=== PATIENT | male | born 1980 | race Caucasian/White ===

== ENCOUNTER 2019-03-07 15:15 | Emergency (ER) | payer MEDICAID, SELFPAY ==
[2019-03-07 15:30] VITALS: BP 128/86; PULSE 89; RESP 18; TEMP 36.8; O2SAT 99; BMI 23.3
--- NOTE | 2019-03-07 15:35 | HMH.EDUTC ---
[facility] [place] Impression: Orchitis UTI (urinary tract infection) Qualifiers: Urinary tract infection type: site unspecified Hematuria presence: with hematuria Qualified Code(s): N39.0 - Urinary tract infection, site not specified Disposition: Home, Self-Care Condition on Discharge: Good Instructions: Orchitis, DI for Orchitis Additional Instructions: Drink plenty of fluids. Take tylenol or ibuprofen for pain or fever Take all the antibiotics as prescribed. Follow up with your regular doctor. GO TO THE ER FOR ANY WORSENING OR LIFE THREATENING SYMPTOMS Prescriptions: Ibuprofen [Ibuprofen 600mg Tablet] 600 mg PO Q6HP PRN #30 tab PRN Reason: Mild Pain cefUROXime axetil [Ceftin 250mg Tablet] 250 mg PO BID #20 tab Doxycycline Hyclate [Doxycycline 100mg Capsule] 100 mg PO BID 10 Days #20 cap Referrals: Provider,Referral, MD [Primary Care Provider] - Time of Disposition: 17:39 Medical Decision Making - Medical Records Medical records reviewed: Yes: I reviewed the patient's medical records. - Joshua Inquiry Pt receiving controlled substance: No Joshua was queried for this patient: No Vital Signs: 03/07/19 15:30 03/07/19 18:10 Temperature 98.2 F 98.2 F Temperature Source Oral Pulse Rate 89 Pulse Rate [Right Radial] 89 Respiratory Rate 18 18 Blood Pressure 128/86 Blood Pressure [Right Arm] 128/86 Blood Pressure Mean [Right Arm] 100 Blood Pressure Source [Right Arm] Automatic Cuff Blood Pressure Position [Right Arm] Sitting 02 Sat by Pulse Oximetry 99 Oxygen Delivery Method Room Air - Lab Data Lab Results 03/07/19 15:35: Urine Color Dark yellow, Urine Appearance Cloudy, Urine pH 7.0, Ur Specific [place] 1.025, Urine Protein 1+, Urine Glucose (UA) Negative, Urine Ketones Trace, Urine Blood 2+, Urine Nitrate Negative, Urine Bilirubin 1+ A, Urine Urobilinogen 1, Ur Leukocyte Esterase 1+ A Orders (Tests/Meds): ED MEDICATIONS Discontinued Medications Generic Name Dose Route Start Last Admin Trade Name Freq PRN Reason Stop Dose Admin Ceftriaxone Sodium 1 gm 03/07/19 17:32 03/07/19 17:45 Rocephin 1gm Vial IM 03/07/19 17:33 1 gm ONCE ONE Administration Protocol Ketorolac Tromethamine 60 mg 03/07/19 17:32 03/07/19 17:45 Toradol 60mg/2ml Vial IM 03/07/19 17:33 60 mg ONCE ONE Administration Lidocaine HCl 0 ml 03/07/19 17:32 03/07/19 17:45 Lidocaine 1% 10ml Mdv IM 03/07/19 17:33 2.1 ml ONCE ONE Administration ORDERS Category Date Time Status Urine Culture Stat Micro 03/07/19 15:42 Received - US Data US Images: Other ED US Reviewed: Yes: I have viewed radiologist's interpretation Preliminary Findings: Normal/NAD Findings Narrative: good blood flow, no torsion [facility] [place] - General Stated complaint: privates hurting Time Seen by Provider: 03/07/19 15:35 Mode of Arrival: Wheelchair Source of Information: Patient Limitations: No Limitations Description of Symptoms (Recalled from Triage Doc. 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 - Related Data Previous Rx's Medication Instructions Recorded Doxycycline Hyclate [Doxycycline 100 mg PO BID 10 Days #20 cap 03/07/19 100mg Capsule] Ibuprofen [Ibuprofen 600mg 600 mg PO Q6HP PRN #30 tab 03/07/19 Tablet] cefUROXime axetil [Ceftin 250mg 250 mg PO BID #20 tab 03/07/19 Tablet] Allergies Allergy/AdvReac Type Severity Reaction Status Date / Time No Known Allergies Allergy Unverified 09/26/17 14:38 - Worker's Comp Is this a Wor
[2019-03-07 15:46] LABS: Apearance,Urine Cloudy (Clear); Bilirubin,Urine 1+ (Negative); Blood, Urine 2+ (Negative); Color,Urine Dark Yellow (Yellow); Glucose,Urine (UA) Negative (Negative); Ketones,Urine TRACE (Negative)
[2019-03-07 15:47] LABS: Protein,Urine 1+ (Negative); Specific Gravity, Urine 1.025 (1.005-1.030); UTC Leukocyte Esterase,Urine 1+ (Negative); UTC Nitrate,Urine Negative (Negative); Urobilinogen,Urine 1 EU/dl (0.2)
--- NOTE | 2019-03-07 16:17 | PC.NURSE ---
NOTIFIED RAD OF TESTICULAR U/S
--- NOTE | 2019-03-07 16:20 | US_ITS ---
US Testicular CLINICAL INDICATION: ITS.REASON: scrotal pain, left testicle swelling ORDERING PHYSICIAN: Gerson Olvera APRN PATIENT AGE: 38 years Comparison: None FINDINGS: The testicles are normal size and shape. There is bilateral blood flow. No mass is evident. Epididymides have an unremarkable appearance. There is a small left hydrocele. No varicocele apparent. IMPRESSION: Small left hydrocele otherwise negative scrotal ultrasound.
--- NOTE | 2019-03-07 16:50 | PC.NURSE ---
RAD HERE TO GET PT FOR TESTICULAR U/S
[2019-03-07 18:10] VITALS: BP 128/86; PULSE 89; RESP 18; TEMP 36.8; O2SAT 99
[2019-03-15 06:15] LABS: Neisseria gonorrhoeae, NAA Negative (Negative)
== END 2019-03-07 18:12 | disposition home or self-care (01) ==
PROVIDERS: Emergency Provider Nurse Practitioner Family
DX: N45.2 Orchitis (principal); N39.0 Urinary tract infection, site not specified
CPT/HCPCS: 76870; 81003; 87086; 87491; 87591; 96372; 99202

== ENCOUNTER 2020-09-11 16:17 | Emergency (ER) | payer OTHER, SELFPAY ==
[2020-09-11 16:33] VITALS: BP 105/57; PULSE 67; RESP 18; TEMP 36.6; O2SAT 98; BMI 23.6
--- NOTE | 2020-09-11 16:40 | HMH.EDUTC ---
[facility] [place]: Exposure to COVID-19 virus Disposition: Home, Self-Care Condition on Discharge: Good Instructions: Preventing the Spread of Coronavirus Discharge Instructions Additional Instructions: Drink plenty of fluids. Take tylenol or ibuprofen for pain or fever. Take the medications as directed. Follow up with your regular doctor. GO TO THE ER FOR ANY WORSENING SYMPTOMS Referrals: PCP,No [Primary Care Provider] - Time of Disposition: 16:41 Medical Decision Making - Medical Records Medical records reviewed: No: I reviewed the patient's medical records. - Joshua Inquiry Pt receiving controlled substance: No Vital Signs: 09/11/20 16:33 09/11/20 16:46 Temperature 97.8 F 97.8 F Temperature Source Oral Oral Pulse Rate 67 Pulse Rate [Radial] 67 Respiratory Rate 18 18 Blood Pressure 105/57 L Blood Pressure [Right Arm] 105/57 L Blood Pressure Mean [Right Arm] 73 Blood Pressure Source Automatic Cuff Blood Pressure Source [Right Arm] Automatic Cuff Blood Pressure Position Sitting Blood Pressure Position [Right Arm] Sitting 02 Sat by Pulse Oximetry 98 Oxygen Delivery Method Room Air Room Air Orders (Tests/Meds): ORDERS Category Date Time Status Covid-19 Nasal PCR ([facility]) Stat Lab 09/11/20 16:23 [place] [facility] [place] General Stated complaint: covid test Time Seen by Provider: 09/11/20 16:40 Mode of Arrival: Ambulatory Source of Information: Patient Limitations: No Limitations Description of Symptoms (Recalled from Triage Doc. by RN): covid test, no symptoms, no exposure. HEENT Symptoms (Recalled from RN notes): No Resp Symptoms (Recalled from RN notes): No Skin Symptoms (Recalled from RN notes): No MS Symptoms (Recalled from RN notes): No Functional Status (Recalled from RN notes): wnl - History of Present Illness Provider Complaint: He was exposed to covid by a coworker. He denies any symptoms. - Related Data Previous Rx's Medication Instructions Recorded Ibuprofen [Ibuprofen 600mg 600 mg PO Q6HP PRN #30 tab 03/07/19 Tablet] cefUROXime axetiL [Ceftin 250mg 250 mg PO BID #20 tab 03/07/19 Tablet] Allergies Allergy/AdvReac Type Severity Reaction Status Date / Time No Known Allergies Allergy Unverified 09/26/17 14:38 - Worker's Comp Is this a Worker's Comp case?: No [facility] History - Hepatitis A Screen Drug use history?: No High risk sexual behaviors?: No History of sexually transmitted infection?: No Currently employed?: No Childcare worker?: No Do you have indoor plumbing?: Yes Do you have electricity?: Yes Attestation statement:: This patient has been screened for Hepatitis A risk factors. I have reviewed the patient's past medical history: Yes Medical History: Denies:: Diabetes Mellitus Type 1, Diabetes Mellitus Type 2 - Social History Smoking Status: Current every day smoker Tobacco Type: cigarettes # Packs/Day (cigarettes): 1 Alcohol Intake: never Occupational Status: other ROS Obtained: Yes All systems reviewed & no additional complaints - Constitutional Constitutional: Reports system reviewed and no additional complaints, except as docu - Eyes Eyes: Reports system reviewed and no additional complaints, except as docu - ENT Ears, Nose, Mouth, and Throat: Reports system reviewed and no additional complaints, except as docu - Cardiovascular Cardiovascular: Reports system reviewed and no additional complaints, except as docu - Respiratory Respiratory: Yes system reviewed and no additional complaints, except as docu - Gastrointestinal Gastrointestingal: Reports: system reviewed and no additional complaints, except as docu Physical Exam - General General appearance: alert, in no apparent distress - Head Head exam: atraumatic, normocephalic, normal inspection - Eye Eye exam: Present: normal appearance, PERRL, EOMI - ENT ENT exam: Present: normal exam, normal oropharynx, mucous
[2020-09-11 16:46] VITALS: BP 105/57; PULSE 67; RESP 18; TEMP 36.6; O2SAT 98
[2020-09-12 14:34] LABS: Adenovirus,PCR Not Detected (NotDetected); Bordetella Pertussis Not Detected (NotDetected); Chlamydophila Pneumoniae, PCR Not Detected (NotDetected); Coronavirus 19, PCR Not Detected (NotDetected); Coronavirus 229E Not Detected (NotDetected); Coronavirus NL63 Not Detected (NotDetected); Coronavirus OC43 Not Detected (NotDetected); Coronovirus HKU1,PCR Not Detected (NotDetected); Human Metapneumovirus Not Detected (NotDetected); Influenza A, PCR Not Detected (NotDetected); Influenza AH1, 2009 Not Detected (NotDetected); Influenza AH1, PCR Not Detected (NotDetected); Influenza AH3,PCR Not Detected (NotDetected); Influenza B, PCR Not Detected (NotDetected); Mycoplasma Pneumoniae, PCR Not Detected (NotDetected); Parainfluenza 1, PCR Not Detected (NotDetected); Parainfluenza 2, PCR Not Detected (NotDetected); Parainfluenza 3, PCR Not Detected (NotDetected); Parainfluenza 4, PCR Not Detected (NotDetected); Respiratory Syncytial Virus Not Detected (NotDetected)
[2020-09-12 14:35] LABS: Rhinovirus/Enterovirus Detected (NotDetected)
== END 2020-09-11 16:47 | disposition home or self-care (01) ==
PROVIDERS: Emergency Provider Nurse Practitioner Family
DX: Z20.828 Contact with and (suspected) exposure to other viral communicable diseases (principal); F17.210 Nicotine dependence, cigarettes, uncomplicated
CPT/HCPCS: 87581; 87633; 87798; 99201; U0003

== ENCOUNTER 2020-09-18 09:36 | Emergency (ER) | payer OTHER, SELFPAY ==
[2020-09-18 09:40] VITALS: BP 129/70; PULSE 90; RESP 20; TEMP 36.8; O2SAT 96; BMI 23.6
--- NOTE | 2020-09-18 09:49 | HMH.EDUTC ---
[facility] [place]ression: Exposure to COVID-19 virus Disposition: Home, Self-Care Condition on Discharge: Good Instructions: Preventing the Spread of Coronavirus Discharge Instructions Additional Instructions: Drink plenty of fluids. Take tylenol for pain or fever. Return if you begin to have difficulty breathing. Follow up with your regular doctor. GO TO THE ER FOR ANY WORSENING SYMPTOMS Referrals: Benny Heck APRN [Primary Care Provider] - Time of Disposition: 10:04 Medical Decision Making - Medical Records Medical records reviewed: No: I reviewed the patient's medical records. - Joshua Inquiry Pt receiving controlled substance: No Vital Signs: 09/18/20 09:40 09/18/20 10:05 Temperature 98.3 F 98.3 F Temperature Source Oral Pulse Rate 90 Pulse Rate [Right Brachial] 90 Respiratory Rate 20 20 Blood Pressure 129/70 Blood Pressure [Right Arm] 129/70 Blood Pressure Mean [Right Arm] 89 Blood Pressure Source [Right Arm] Automatic Cuff Blood Pressure Position [Right Arm] Sitting 02 Sat by Pulse Oximetry 96 Oxygen Delivery Method Room Air Orders (Tests/Meds): ORDERS Category Date Time Status Covid-19 Nasal PCR Sendout Bill Stat Lab 09/18/20 09:45 [place] [facility] [place] General Stated complaint: COVID testing for work Time Seen by Provider: 09/18/20 10:01 - History of Present Illness Provider Complaint: His has had covid. He did have some symptoms, but he only tested positive for rhinovirus. He denies any symptoms over the past 3 days. He needs a negative test to be allowed to go back to work. - Related Data Previous Rx's Medication Instructions Recorded Ibuprofen [Ibuprofen 600mg 600 mg PO Q6HP PRN #30 tab 03/07/19 Tablet] cefUROXime axetiL [Ceftin 250mg 250 mg PO BID #20 tab 03/07/19 Tablet] Allergies Allergy/AdvReac Type Severity Reaction Status Date / Time No Known Allergies Allergy Verified 09/18/20 09:53 [facility] History - Hepatitis A Screen Attestation statement:: This patient has been screened for Hepatitis A risk factors. I have reviewed the patient's past medical history: Yes Medical History: Denies:: Diabetes Mellitus Type 1, Diabetes Mellitus Type 2 - Social History Smoking Status: Current every day smoker Tobacco Type: cigarettes # Packs/Day (cigarettes): 1 Alcohol Intake: never Occupational Status: other ROS Obtained: Yes All systems reviewed & no additional complaints - Constitutional Constitutional: Reports system reviewed and no additional complaints, except as docu - Eyes Eyes: Reports system reviewed and no additional complaints, except as docu - ENT Ears, Nose, Mouth, and Throat: Reports system reviewed and no additional complaints, except as docu - Cardiovascular Cardiovascular: Reports system reviewed and no additional complaints, except as docu - Respiratory Respiratory: Yes system reviewed and no additional complaints, except as docu - Gastrointestinal Gastrointestingal: Reports: system reviewed and no additional complaints, except as docu Physical Exam - General General appearance: alert, in no apparent distress - Head Head exam: atraumatic, normocephalic, normal inspection - Eye Eye exam: Present: normal appearance, PERRL, EOMI - ENT ENT exam: Present: normal exam, normal oropharynx, mucous membranes moist, TM's normal bilaterally, normal external ear exam - Neck Neck exam: Present: normal inspection, full ROM, trachea midline. Absent: meningismus, lymphadenopathy - Chest Chest inspection: Present: normal inspection, symmetric chest wall rise. Absent: tenderness - Respiratory Respiratory exam: Present: normal lung sounds bilaterally. Absent: respiratory distress - Cardiovascular Cardiovascular exam: Present: regular rate, normal rhythm. Absent: JVD - Abdominal Exam Abdominal exam: Present: soft, normal bowel sounds. Absent: distention, tenderness, g
[2020-09-18 10:05] VITALS: BP 129/70; PULSE 90; RESP 20; TEMP 36.8; O2SAT 96
[2020-09-19 14:15] LABS: Covid-19 Nasal PCR Sendout Lex Not Detected
== END 2020-09-18 10:06 | disposition home or self-care (01) ==
PROVIDERS: Emergency Provider Nurse Practitioner Family; PCP Nurse Practitioner Family
DX: Z20.828 Contact with and (suspected) exposure to other viral communicable diseases (principal)
CPT/HCPCS: 99201; U0004

== ENCOUNTER 2020-10-23 15:40 | Emergency (ER) | payer OTHER, SELFPAY ==
[2020-10-23 15:50] VITALS: BP 88/47; PULSE 74; RESP 14; TEMP 36.5; O2SAT 96; BMI 22.8
--- NOTE | 2020-10-23 16:14 | HMH.EDUTC ---
[facility] [place] Clinical Impression: Exposure to COVID-19 virus Disposition: Home, Self-Care Condition on Discharge: Good Instructions: Preventing the Spread of Coronavirus Discharge Instructions Referrals: PCP,No [Primary Care Provider] - Time of Disposition: 16:15 Medical Decision Making - Joshua Inquiry Pt receiving controlled substance: No Vital Signs: 10/23/20 15:50 Temperature 97.7 F Temperature Source Oral Pulse Rate [Right Brachial] 74 Respiratory Rate 14 Blood Pressure [Right Arm] 88/47 L Blood Pressure Mean [Right Arm] 60 Blood Pressure Source [Right Arm] Automatic Cuff Blood Pressure Position [Right Arm] Sitting 02 Sat by Pulse Oximetry 96 Oxygen Delivery Method Room Air Orders (Tests/Meds): ORDERS Category Date Time Status Covid-19 Nasal PCR ([facility]) Routine Lab 10/23/20 16:00 Received [facility] [place]PI - General Stated complaint: covid test Time Seen by Provider: 10/23/20 16:14 Mode of Arrival: Ambulatory Source of Information: Patient Limitations: No Limitations Description of Symptoms (Recalled from Triage Doc. by RN): COVID TEST D/T EXPOSURE HEENT Symptoms (Recalled from RN notes): No Resp Symptoms (Recalled from RN notes): No Skin Symptoms (Recalled from RN notes): No MS Symptoms (Recalled from RN notes): No Functional Status (Recalled from RN notes): WNL - History of Present Illness Provider Complaint: Exposed to COVID19 1 week ago and would like to be tested Relieving factors: none Exacerbating factors: none Associated symptoms: denies other symptoms Treatments prior to arrival: none - Related Data Previous Rx's Medication Instructions Recorded Ibuprofen [Ibuprofen 600mg 600 mg PO Q6HP PRN #30 tab 03/07/19 Tablet] cefUROXime axetiL [Ceftin 250mg 250 mg PO BID #20 tab 03/07/19 Tablet] Allergies Allergy/AdvReac Type Severity Reaction Status Date / Time No Known Allergies Allergy Verified 09/18/20 09:53 - Worker's Comp Is this a Worker's Comp case?: No [facility] History - Hepatitis A Screen Drug use history?: No High risk sexual behaviors?: No History of sexually transmitted infection?: No Currently employed?: No Childcare worker?: No Do you have indoor plumbing?: Yes Do you have electricity?: Yes Attestation statement:: This patient has been screened for Hepatitis A risk factors. I have reviewed the patient's past medical history: Yes Medical History: Denies:: Diabetes Mellitus Type 1, Diabetes Mellitus Type 2 - Social History Smoking Status: Current every day smoker Tobacco Type: cigarettes # Packs/Day (cigarettes): 1 Alcohol Intake: never Occupational Status: other ROS Obtained: Yes All systems reviewed & no additional complaints Physical Exam - General General appearance: alert, in no apparent distress - Head Head exam: normocephalic - Eye Eye exam: Present: PERRL - ENT ENT exam: Present: normal oropharynx - Neck Neck exam: Present: full ROM - Chest Chest inspection: Present: symmetric chest wall rise - Respiratory Respiratory exam: Present: normal lung sounds bilaterally - Cardiovascular Cardiovascular exam: Present: regular rate, normal rhythm - Neurological Exam Neurological exam: Present: alert, oriented X3 - Psychiatric Psychiatric exam: Present: normal affect, normal mood - Skin Skin exam: Present: warm, dry, intact
[2020-10-23 16:16] VITALS: BP 102/58; PULSE 74; RESP 14; TEMP 36.5; O2SAT 96
== END 2020-10-23 16:24 | disposition home or self-care (01) ==
PROVIDERS: Emergency Provider Physician Assistant
DX: Z20.822 Contact with and (suspected) exposure to COVID-19 (principal); F17.210 Nicotine dependence, cigarettes, uncomplicated
CPT/HCPCS: 99202; G0463; U0003

== ENCOUNTER 2021-05-28 17:14 | Emergency (ER) | payer OTHER, SELFPAY ==
[2021-05-28 17:20] VITALS: BP 92/41; PULSE 65; RESP 14; TEMP 36.9; O2SAT 97; BMI 22.1
--- NOTE | 2021-05-28 18:00 | HMH.EDUTC ---
[facility]: Exposure to COVID-19 virus Disposition: Home, Self-Care Condition on Discharge: Good Instructions: DI for COVID-19 (Suspected or Confirmed ), Coronavirus Disease 2019, Preventing the Spread of Coronavirus Discharge Instructions Additional Instructions: *Monitor Temp, Over the counter Motrin or Tylenol as directed/as needed Tylenol every 4 hours and Motrin every 6 hours (as long as your family doctor has told you that you can take it) for fever or pain. and straight to ER if unable to lower temp less than 101.0 after medication given Follow up IMMEDIATELY for new or worsening symptoms or no Noticeable improvement over the next 48-72 hours. 911 for difficulty breathing or swallowing You were tested for today for COVID19 your test result should be back in the next 24-48 hours, you may call to the [facility] to see if your test results are back in the next 48 hours [phone] [facility] hours are 9am-9pm You was given a handout with instructions for Self Quarantine and Self isolation for while you wait on test results and what to do if they are positive If you are positive the Health Dept will be contacting you also Make sure to take your Vitamins Vit. C Vit D and Zinc if you can take them Referrals: Provider,Referral, MD [Primary Care Provider] - As needed Time of Disposition: 18:01 Medical Decision Making - Joshua Inquiry Pt receiving controlled substance: No Joshua was queried for this patient: No Vital Signs: 05/28/21 17:20 Temperature 98.4 F Temperature Source Oral Pulse Rate [Right Brachial] 65 Respiratory Rate 14 Blood Pressure [Right Arm] 92/41 L Blood Pressure Mean [Right Arm] 58 Blood Pressure Source [Right Arm] Automatic Cuff Blood Pressure Position [Right Arm] Sitting 02 Sat by Pulse Oximetry 97 Oxygen Delivery Method Room Air Orders (Tests/Meds): ORDERS Category Date Time Status Covid-19 Nasal PCR ([facility]) Routine Lab 05/28/21 17:59 [place] [facility] [place] General Stated complaint: covid test Time Seen by Provider: 05/28/21 18:00 Mode of Arrival: Ambulatory Source of Information: Patient Limitations: No Limitations Description of Symptoms (Recalled from Triage Doc. by RN): COVID TEST D/T EXPOSURE HEENT Symptoms (Recalled from RN notes): No Resp Symptoms (Recalled from RN notes): No Skin Symptoms (Recalled from RN notes): No MS Symptoms (Recalled from RN notes): No Functional Status (Recalled from RN notes): WNL - History of Present Illness Provider Complaint: Patient state that he was recently around someone last week that tested positive for COVID State that he is not having any symptoms but due to close contact was told that he may need to get tested in a week and he is still not having any symptoms but wanted to get tested - Related Data Previous Rx's Medication Instructions Recorded Ibuprofen [Ibuprofen 600mg 600 mg PO Q6HP PRN #30 tab 03/07/19 Tablet] cefUROXime axetiL [Ceftin 250mg 250 mg PO BID #20 tab 03/07/19 Tablet] Allergies Allergy/AdvReac Type Severity Reaction Status Date / Time No Known Allergies Allergy Verified 09/18/20 09:53 - Worker's Comp Is this a Worker's Comp case?: No H History - Hepatitis A Screen Drug use history?: No High risk sexual behaviors?: No History of sexually transmitted infection?: No Currently employed?: No Childcare worker?: No Do you have indoor plumbing?: Yes Do you have electricity?: Yes Attestation statement:: This patient has been screened for Hepatitis A risk factors. I have reviewed the patient's past medical history: Yes Medical History: Denies:: Diabetes Mellitus Type 1, Diabetes Mellitus Type 2 - Social History Smoking Status: Current every day smoker Tobacco Type: cigarettes # Packs/Day (cigarettes): 1 Alcohol Intake: never Occupational Status: other ROS Obtained: Yes All systems reviewed & no additional complaints, Yes Systems reviewed as appropriate & no additio
[2021-05-28 18:05] VITALS: BP 92/41; PULSE 65; RESP 14; TEMP 36.9; O2SAT 97
== END 2021-05-28 18:11 | disposition home or self-care (01) ==
PROVIDERS: Emergency Provider Nurse Practitioner
DX: Z20.822 Contact with and (suspected) exposure to COVID-19 (principal); F17.210 Nicotine dependence, cigarettes, uncomplicated
CPT/HCPCS: 99202; G0463; U0003

== ENCOUNTER → 2021-08-26 18:26 | Outpatient (CLI) | payer OTHER, SELFPAY | PROVIDERS: Visit Provider Nurse Practitioner | DX: Z20.822 Contact with and (suspected) exposure to COVID-19 (principal) | CPT/HCPCS: C9803; U0003; U0005 ==